=== PATIENT | male | born 1970 | race Asian ===

== ENCOUNTER 2017-11-01 23:45 | Emergency (ER) | payer SELFPAY | END 2017-11-02 00:30 | disposition left against medical advice (07) | LOC: ED 23:45 | DX: Z53.21 Procedure and treatment not carried out due to patient leaving prior to being seen by health care provider (principal) ==

== ENCOUNTER 2018-07-10 19:13 | Emergency (ER) | payer OTHER ==
[2018-07-10 19:23] VITALS: BP 144/101
[2018-07-10] MEDS ORDERED: MOTRIN PO ONE (19:37)
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
== END 2018-07-10 23:56 | disposition home or self-care (01) ==
LOC: ED 19:13
DX: S46.911A Strain of unspecified muscle, fascia and tendon at shoulder and upper arm level, right arm, initial encounter (principal); I10 Essential (primary) hypertension; F17.200 Nicotine dependence, unspecified, uncomplicated; V49.49XA Driver injured in collision with other motor vehicles in traffic accident, initial encounter; Y93.89 Activity, other specified; Y92.488 Other paved roadways as the place of occurrence of the external cause; Y99.8 Other external cause status
CPT/HCPCS: 99283

== ENCOUNTER 2019-08-28 21:36 | Emergency (ER) | payer OTHER ==
[2019-08-28 21:53] VITALS: BP 123/91
--- NOTE | 2019-08-28 21:53 | Event Note ---
ED Screening Note Date of service: 08/28/19 Time: 21:51 ED Screening Note: Pt complains of right chest and arm pain x 1 month states swelling in his right chest This initial assessment/diagnostic orders/clinical plan/treatment(s) is/are subject to change based on patients health status, clinical progression and re- assessment by fellow clinical providers in the ED. Further treatment and workup at subsequent clinical providers discretion. Patient/guardian urged not to elope from the ED as their condition may be serious if not clinically assessed and managed. Initial orders include: labs CXR US
--- NOTE | 2019-08-28 23:00 | XRay Report ---
CHEST 2 VIEWS INDICATION / CLINICAL INFORMATION: MAIN: chest pain c/o chest pain, right arm pain and tingling, neck and back pain, and SOB x 1 month. NAD noted in triage. MAEW. . COMPARISON: Chest radiograph 05/17/2019 FINDINGS: SUPPORT DEVICES: None. HEART / MEDIASTINUM: No significant abnormality. LUNGS / PLEURA: No significant pulmonary or pleural abnormality. No pneumothorax. ADDITIONAL FINDINGS: No significant additional findings. IMPRESSION: 1. No acute findings. Signer Name: Ramya England MD Signed: 08/28/2019 10:56 PM Workstation Name: [id number]
[2019-08-28 23:21] LABS: Hematocrit 44.7 % (35.5-45.6); Hemoglobin 15.3 gm/dl (11.8-15.2); Mean Corpuscular HGB Conc 34 % (32-34); Mean Corpuscular Volume 91 fl (84-94); Platelet Count 416 K/mm3 (140-440); Red Blood Count 4.91 M/mm3 (3.65-5.03); Red Cell Distribution Width 13.4 % (13.2-15.2)
[2019-08-28 23:34] LABS: BUN/Creatinine Ratio 17; Blood Urea Nitrogen 17 mg/dL (9-20); Calcium 9.7 mg/dL (8.4-10.2); Hemolysis Index 17
[2019-08-29] MEDS ORDERED: CYCLOBENZAPRINE 10 MG TAB ONE (00:54)
[2019-08-29] MEDS ORDERED: CYCLOBENZAPRINE 10 MG TAB PO ONE (00:55)
== END 2019-08-29 00:56 | disposition home or self-care (01) ==
LOC: ED 21:36
DX: M79.601 Pain in right arm (principal); R07.89 Other chest pain; M54.2 Cervicalgia; M54.9 Dorsalgia, unspecified; R06.02 Shortness of breath; I10 Essential (primary) hypertension; Z98.890 Other specified postprocedural states; Z79.899 Other long term (current) drug therapy
CPT/HCPCS: 36415; 71046; 80048; 84484; 85027; 93005; 93010; 99284